=== PATIENT | female | born 1965 | race Caucasian/White ===

== ENCOUNTER 2017-01-03 20:10 | Emergency (ER) | payer OTHER ==
[~2017-01-03] VITALS: Ht 160 cm; Wt 63.6 kg
[2017-01-03 20:27] VITALS: BP 149/87; PULSE 88; RESP 20; O2SAT 99
--- NOTE | 2017-01-03 20:54 | ED.REPORT ---
HPI-Extremity Problem Upper Date of Service January 03, 2017 ED Provider: Roosevelt Oconnor DO A 51 year old healthy female presents to the ED with a laceration to the right middle finger that occurred just prior to arrival. Patient was reportedly cutting vegetables and the knife slipped. Patient is not currently on any anticoagulants. She denies any numbness or weakness in the hand. Nursing Notes Stated Complaint: LACERATION OF RIGHT MIDDLE FINGER,KITCHEN KNIFE Chief Complaint: Laceration Nursing Notes Reviewed: Yes Allergies: Coded Allergies: codeine (Verified Allergy, Mild, intolerance, 01/03/17) General Time Seen by MD: 20:46 Chief Complaint Finger injury right 3 Hx Obtained From: Patient Arrived By: Walk-in Onset Occurred: Just prior to arrival Symptom Duration: Since onset Caused by: Accidental Location: : Finger right 3 Quality: Painful Severity: Current: Mild Severity: Maximum: Mild Associated with: Denies: Numb extremities, Unable to move joint, Weakness Pertinent Negative: Pt denies other symptoms Immunizations: Tetanus not up to date Recent Healthcare: No recent doctor visit, No recent hospitalization Past Medical History Past Medical History Healthy Past Surgical History None reported. Smoking History Unknown if Ever Smoker Social History Other Social History: Good social support, Local resident Ambulatory Status Independent Review of Systems Musculoskeletal: Reports: Joint pain (Right middle finger pain secondary to laceration ), Denies: Joint swelling Neurologic: Denies: Numbness, Weakness Complete sys rev & neg: except as marked. Physical Exam Initial Vital Signs Vital Signs (First) Date Time Temp Pulse Resp B/P Pulse Ox O2 Delivery O2 Flow Rate FiO2 01/03/17 20:27 36.3 88 20 149/87 99 Initial VS: Reviewed General/Constitutional: Well-developed, Well-nourished Head / Eyes: Atraumatic, Normocephalic Lower Extremities: Vascular intact, Neuro intact, No swelling, No tenderness Skin: Warm, Dry, No cyanosis Neurologic: Alert, Oriented Psychiatric: Mood/affect normal General/Constitutional: Awake, Alert, No acute distress Neck: Atraumatic, Supple, Full range of motion Respiratory / Chest: Atraumatic, No respiratory distress Cardiovascular: Cap refill not delayed, Peripheral circulation NL, Pulses = bilaterally Upper Extremity / MS: Atraumatic, Inspection NL, Neurologic intact, Vascular intact Wrist / Hand: Atraumatic, Neurologic intact, Vascular intact Trauma / Burn / Environmental: Positive: Laceration (Laceration to the Right Middle Finger; No tendon involvement) Procedures Laceration Management Time: 21:00 Procedure Performed by: ED physician (Medical Student with supervision ) Consent / Setup / Site Prep: Consent from patient, Time-out performed, Hand hygiene observed, Stand sterile technique Location of Wound: Laceration to the right 3rd finger Wound Length: 2 cm Repair Skin: Dermabond Post-Procedure / Complications: Antibiotic oint applied, Dressing applied, No complications, Condition improved, Tolerated procedure well, Patient stable Re-Eval/Medical Decision Med Decision/Clinical Course No signs of tendon involvement. The wound was carefully irrigated. The skin was prepped. The wound lie down nicely flat. It was glued shut. The flap looked good. She will be placed in a finger foam splint. Plan to update her tetanus as well. Re-Evaluation/Progress : Time of Eval: 20:58 Patient Status: Condition improved Re-Evaluation/Progress Note: Laceration is repaired. Pt tolerates well. All of the patient's questions are addressed. She understands and agrees with the intended treatment plan. Counseled Regarding: Diagnosis, Need for follow-up, When/why to return to ED Discharge & Departure Impression: Primary Impression: Finger laceration Encounter type: initial encounter Qualified Code: S61.219A - Laceration without foreign body of unspecified finger without damage to nail, initial encounter Disposition: Home Discharge Condition All VS Reviewed: Yes Condition: Improved Patient Instructions: Finger Laceration (ED) Additional Instructions: Thank you for trusting us with your care this evening. Make sure to keep ear finger in the foam splint and keep it immobilized for about a week. The wound should be healed by then and the glue should fall off in about a week as well. Watch for signs of infection: Pain, redness, swelling or discharge. Have a wound check in 48 hours. If the wound looks great and you can forego this however if there is any redness or any signs of infection and be seen right away. Lillianibe Attestation Portions of this note were transcribed by Patricio Gautam. I, Dr. Oconnor personally performed the history, physical exam and medical decision-making; I reviewed and confirmed the accuracy of the information in the transcribed note. Signed by: Karis Christiansen, 01/03/17 [id number]. [place] Oconnor DO January 03, 2017 20:54 PATRICIO GAUTAM January 03, 2017 21:01
[2017-01-03] MEDS ORDERED: Tissue Adhesive Liq (CS Supplied) TOPICAL ONE (20:55)
[2017-01-03] MEDS ORDERED: TdaP Vaccine 0.5 mL Inj IM ONE (20:55)
== END 2017-01-03 22:25 | disposition home or self-care (01) ==
LOC: SED 20:10
DX: S61.212A Laceration without foreign body of right middle finger without damage to nail, initial encounter (principal); W26.0XXA Contact with knife, initial encounter; Y93.G9 Activity, other involving cooking and grilling; Y92.89 Other specified places as the place of occurrence of the external cause; Y99.8 Other external cause status; Z88.5 Allergy status to narcotic agent